=== PATIENT | female | born 1950 | race Caucasian/White ===

== ENCOUNTER 2019-10-26 12:08 | Emergency (ER) | payer OTHER ==
[~2019-10-26] VITALS: Ht 152.4 cm; Wt 38.6 kg
[2019-10-26 14:36] VITALS: BP 97/55
[2019-10-26] MEDS ORDERED: KETOROLAC TROMETH 30 MG/ML 1ML VIAL IM ONE (15:15)
== END 2019-10-26 15:37 | disposition home or self-care (01) ==
LOC: ER 12:14
DX: M47.892 Other spondylosis, cervical region (principal); M54.5 Low back pain; G89.29 Other chronic pain; J45.909 Unspecified asthma, uncomplicated
CPT/HCPCS: 72040; 96372; 99283; J1885